=== PATIENT | male | born 1955 | race Caucasian/White ===

== ENCOUNTER 2025-03-18 16:47 | Observation (INO) ==
[~2025-03-18 16:47] MED LIST: FAMOTIDINE 20MG IV PUSH 20 MG/5 ML SYR IV SCH
[2025-03-18] MEDS ORDERED: STAT IV/IM STA (16:56)
[2025-03-18] MEDS: SODIUM CHLORIDE 0.9% 1,000 ML IV SCH ×2 (17:00→21:08)
[2025-03-18] MEDS: EPINEPHrine/NSS 4 MG/254 ML BAG IV SCH (17:02)
[2025-03-18 17:10] LABS: Hematocrit (blood only) 44.7 % (42.0-52.0); Hemoglobin 16.2 g/dl (14.0-18.0); Immature Granulocytes # (auto) 0.02 K/uL (0.01-0.20); Immature Granulocytes % (auto) 0.3 %; Mean Corpuscular Hemoglobin 31.7 pg (25.0-34.0); Mean Corpuscular Volume 87.5 fL (80.0-100.0); Platelet Count 275 K/uL (130-400); RDW Standard Deviation 43.6 fL (36.4-46.3); Red Blood Count 5.11 M/uL (4.70-6.10); White Blood Count 6.56 K/ul (4.8-10.8)
[2025-03-18] MEDS: diphenhydrAMINE 50 MG/ML VIAL IV STA ×2 (17:13→18:08)
[2025-03-18] MEDS: FAMOTIDINE 20MG IV PUSH 20 MG/5 ML SYR IV STA (17:14)
[2025-03-18] MEDS: FAMOTIDINE 20MG/5ML IV PUSH IV ONE (17:14)
[2025-03-18] MEDS: diphenhydrAMINE 50 MG/ML VIAL ONE (17:14)
[2025-03-18] MEDS: ALBUT/IPRATROP 3MG/0.5MG NEB 3 ML VIAL NEB STA (17:15)
--- NOTE | 2025-03-18 17:15 | Emergency Department Note ---
Impression & Plan Anaphylaxis, Urticaria, Sting of hornets, wasps, and bees causing poisoning and toxic reactions ED Provider Note Provider: Jarret Bryan MD CHIEF COMPLAINT: Allergic reaction, stung by hornets, dehydrated, upper chest discomfort HISTORY OF PRESENT ILLNESS: Patient is a 70-year-old gentleman history of seizures on phenobarbital [place]. Patient stays awake outside doing yard work and chopping trees since 830 this morning. Did have a brief lunch but did not hydrate that well. Evidently got stung by approximately 15-20 hornets this afternoon. 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 Do not have an epinephrine pen on him and suffered immediate allergic reaction. Denies nausea or abdominal pain. Line was activated. EMS administered 0.3 mg IM of epinephrine through an autoinjector as well as 50 mg of Benadryl and 125 mg of Solu-Medrol. Patient states symptoms of not really abated much. So reports some tightness in the upper chest around the base of her throat. Denies breathing issues but states his mouth feels somewhat dry. If shaking somewhat uncontrollably but awake and alert and talking. Again denies nausea or abdominal pain at this point. Primarily lives out of town in the [facility]. Denies known cardiac history PAST MEDICAL HISTORY: As noted above MEDICATIONS: Reviewed home medications with him SOCIAL HISTORY: PHYSICAL EXAM: GENERAL: alert and oriented on stretcher with some tremulousness diffusely Head: normocephalic and atraumatic EYES: No injection, discharge or icterus. EOMI. NECK: Trachea midline. Supple. ENT: Mucous membranes pink and moist. Pharynx without erythema or exudate. No tongue elevation or swelling appreciable. LUNGS: Airway patent. No retractions but mildly tachypneic. Breath sounds clear with good air entry bilaterally. HEART: Regular rate and rhythm. No chest wall tenderness ABDOMEN: Soft and non-tender, without guarding or rebound. SKIN: Acyanotic, warm, dry, with diffuse Sunset area/hives EXTREMITIES: Without swelling, tenderness or deformity NEUROLOGICAL: No focal deficits. No aphasia. No facial droop or slurred speech.Ambulatory. EK bpm. Normal sinus rhythm. Some baseline artifact due to shaking but no clear acute ST segment elevation with a QTc of 435. CONTINUOUS CARDIAC MONITORING: was ordered and showed a heart rate of 80s-100s bpm in normal sinus rhythm to sinus tachycardia Patient's laboratory studies and imaging reviewed. Differential includes Allergic reaction, anaphylaxis, urticaria, Thrasher-Isra syndrome, toxic epidermal necrolysis, erythema multiforme, contact dermatitis, cellulitis, ACS as well as other pathologies. IMPRESSION/MEDICAL DECISION MAKING: Patient was with extensive Sunset area/hives and stung by hornet concerns for allergic reaction. I received additional IM epinephrine and route as well as steroids and Benadryl. Denies significant GI symptoms. Denying feeling short of breath. Some tightness to the upper chest and neck region. EKG without STEMI. Question how much is from the sting versus allergic reaction versus may be induced even from the epinephrine. Will start gently on an epinephrine drip given the severity of his Sunset area and tremulousness so can be titrated. Given additional Benadryl and IV fluid here as he has been outside and likely is somewhat dehydrated. Pepcid and albuterol given as well to help with allergic symptoms. Basic blood work is sent. Does not seem infectious. Does not seem like seizure-like activity. No significant trauma is related. No significant anemia or leukocytosis. No troponin elevation or CK elevation I doubt rhabdomyolysis. Monitored here in multiple reassessments. Over the course of time here improved. Never hypotensive. Rash lightening. No longer tightness of the chest or throat. Did cough up some phlegm. Not drowsy given additional Benadryl and will turn off the epinephrine drip. Discussed with him and given the severity of the reaction would recommend observation overnight. While not excited about this, he was agreeable and the hospitalist team was contacted. Patient stated be tolerating cessation of epinephrine drip without issue on reassessment. DIAGNOSIS: Anaphylaxis, hornet stings DISPOSITION: Hospitalist will evaluate Patient was agreeable with this plan. Critical Care I have personally spent 46 minutes of critical care time in the direct management of this patient. This includes bedside care, interpretation of diagnostic studies, and testing, discussion with consultants, patient, and family members, and other required patient management activities. These 46 minutes is in excess of all separately billable procedures. Past Med/Surg History Problem List (Updated 03/18/25 @ 18:54 by Candice Prieto PA-C) BPH (benign prostatic hyperplasia) Seizure disorder Sting of hornets, wasps, and bees causing poisoning and toxic reactions (Acute) Urticaria (Acute) Anaphylaxis (Acute) Social History Smoking Status: Never smoker Preferred Language: Togolese Feels Safe at Home: Yes Allergies Allergies Allergy/AdvReac Type Severity Reaction Status Date / Time bee venom protein (honey bee) Allergy Severe Anaphylaxis Verified 03/18/25 18:05 Home Meds Home Medications Medication Instructions Recorded Confirmed GABAPENTIN (NEURONTIN) 300 mg PO QID #0 caps 02/14/12 MULTIVITAMINS/MINERALS (MVI WITH 1 tab PO DAILY #0 tabs 02/14/12 MINERALS) Diclofenac (Voltaren) 50 mg PO BID #0 tabs 02/06/13 mirabegron 50 mg tablet,extended 50 mg PO 03/18/25 release 24 hr oxybutynin chloride 10 mg mg PO 03/18/25 tablet,extended release 24 hr oxycodone 5 mg tablet mg 03/18/25 phenobarbital 30 mg tablet 30 mg PO 03/18/25 Results & Data (ED) Vital Signs Vital Signs - 24 hr 03/18/25 16:56 03/18/25 16:56 03/18/25 17:01 Temperature 36.9 C Temperature Source Oral Pulse Rate 96 H 95 H Pulse Rate [Apical] Pulse Rhythm Regular Pulse Rhythm [Apical] Respiratory Rate 12 28 H Respiratory Effort / Characteristics Respiratory Depth Respiratory Pattern Blood Pressure Blood Pressure [Right Arm] Blood Pressure Mean Blood Pressure Mean [Right Arm] Pulse Oximetry 96 98 96 Oxygen Delivery Method Room Air Room Air Room Air Oxygen Flow Rate 0 Sepsis Recent Fever Within 48 Hours No Sepsis New/Unexplained Change in Mental Status N/A Sepsis Action Taken by Nursing No Action Required 03/18/25 17:02 03/18/25 17:02 03/18/25 17:21 Temperature Temperature Source Pulse Rate 90 95 H Pulse Rate [Apical] 92 H Pulse Rhythm Pulse Rhythm [Apical] Regular Respiratory Rate 24 17 Respiratory Effort / Characteristics Non-Labored Spontaneous Respiratory Depth Normal Respiratory Pattern Regular Blood Pressure 135/82 Blood Pressure [Right Arm] 152/130 H Blood Pressure Mean 109 Blood Pressure Mean [Right Arm] 137 Pulse Oximetry 100 100 Oxygen Delivery Method Nebulizer Oxygen Flow Rate 8 Sepsis Recent Fever Within 48 Hours Sepsis New/Unexplained Change in Mental Status Sepsis Action Taken by Nursing 03/18/25 18:08 03/18/25 18:12 03/18/25 18:33 Temperature Temperature Source Pulse Rate 93 H 100 H 96 H Pulse Rate [Apical] Pulse Rhythm Pulse Rhythm [Apical] Respiratory Rate 20 23 18 Respiratory Effort / Characteristics Respiratory Depth Respiratory Pattern Blood Pressure 149/68 H 149/68 H Blood Pressure [Right Arm] Blood Pressure Mean 101 95 Blood Pressure Mean [Right Arm] Pulse Oximetry 97 97 96 Oxygen Delivery Method Oxygen Flow Rate Sepsis Recent Fever Within 48 Hours Sepsis New/Unexplained Change in Mental Status Sepsis Action Taken by Nursing 03/18/25 18:45 03/18/25 18:54 03/18/25 18:55 Temperature Temperature Source Pulse Rate 96 H 96 H Pulse Rate [Apical] Pulse Rhythm Pulse Rhythm [Apical] Respiratory Rate 18 17 Respiratory Effort / Characteristics Respiratory Depth Respiratory Pattern Blood Pressure 116/71 Blood Pressure [Right Arm] Blood Pressure Mean 91 Blood Pressure Mean [Right Arm] Pulse Oximetry Oxygen Delivery Method Oxygen Flow Rate Sepsis Recent Fever Within 48 Hours Sepsis New/Unexplained Change in Mental Status Sepsis Action Taken by Nursing 03/18/25 18:55 Temperature Temperature Source Pulse Rate Pulse Rate [Apical] Pulse Rhythm Pulse Rhythm [Apical] Respiratory Rate Respiratory Effort / Characteristics Respiratory Depth Respiratory Pattern Blood Pressure 116/71 Blood Pressure [Right Arm] Blood Pressure Mean 91 Blood Pressure Mean [Right Arm] Pulse Oximetry Oxygen Delivery Method Oxygen Flow Rate Sepsis Recent Fever Within 48 Hours Sepsis New/Unexplained Change in Mental Status Sepsis Action Taken by Nursing Laboratory Data 03/18/25 16:56 03/18/25 16:56 Lab Results 03/18/25 Range/Units 16:56 WBC 6.56 (4.8-10.8) K/ul RBC 5.11 (4.70-6.10) M/uL Hgb 16.2 (14.0-18.0) g/dl Hct 44.7 (42.0-52.0) % MCV 87.5 (80.0-100.0) fL MCH 31.7 (25.0-34.0) pg MCHC 36.2 H (32.0-36.0) g/dL RDW Std Deviation 43.6 (36.4-46.3) fL RDW Coeff of Marcy 13.6 (11.5-14.5) % Plt Count 275 (130-400) K/uL MPV 9.5 (9.4-12.4) fL Immature Gran % (Auto) 0.3 % Neut % (Auto) 63.7 % Lymph % (Auto) 23.6 % [place] % (Auto) 11.3 % Eos % (Auto) 0.5 % Baso % (Auto) 0.6 % Neut # (Auto) 4.18 (1.40-6.50) K/uL Lymph # (Auto) 1.55 (1.20-3.40) K/uL [place] # (Auto) 0.74 H (0.11-0.59) K/uL Eos # (Auto) 0.03 (0.00-0.50) K/uL Baso # (Auto) 0.04 (0.00-0.20) K/uL Immature Gran # (Auto) 0.02 (0.01-0.20) K/uL Sodium 139 (136-145) mmol/L Potassium 3.8 (3.5-5.1) mmol/L Chloride 100 (98-107) mmol/L Carbon Dioxide 25 (21-32) mmol/L Anion Gap 14 H (3-11) BUN 12 (6-23) mg/dl Creatinine 1.09 (0.6-1.4) mg/dl Est Cr Clr Drug Dosing 65.0 ml/min eGFR 73.01 BUN/Creatinine Ratio 11.0 (10-20) Glucose 153 H (70-99(Fasting)) mg/dl Calcium 9.5 (8.6-10.3) mg/dl Total Bilirubin 1.1 H (0.2-1.0) mg/dl AST 24 (13-39) U/L ALT 32 (7-52) U/L Alkaline Phosphatase 104 (34-104) U/L Total Creatine Kinase 159 (30-223) U/L Troponin I High Sens 5.4 (0-20) pg/ml Total Protein 7.0 (6.0-8.3) gm/dl Albumin 4.1 (3.4-5.0) gm/dl Globulin 2.9 (2.5-4.0) gm/dl Albumin/Globulin Ratio 1.4 (0.9-2) Administered Medications Epinephrine HCl () 4 mg in 254 mls @ 13.887 mls/hr IV .[id number] [facility]; Protocol Stop: 04/17/25 16:59 Last Infusion: 03/18/25 18:08 Dose: Infused Documented By: REBECCA Co-signed By: DENNISE Admin: 03/18/25 17:02 Dose: 0.05 mcg/kg/min, 13.9 mls/hr Documented By: CHRISTELLE Co-signed By: MICHAEL Discontinued Medications Albuterol (Albut/Ipratrop 3mg/0.5mg Neb 3 Ml Vial) 3 ml NEB NOW STA; Protocol Stop: 03/18/25 17:10 Last Admin: 03/18/25 17:15 Dose: 3 ml Documented By: CHRISTELLE Diphenhydramine HCl (Diphenhydramine 50 Mg/Ml Vial) Confirm Administered Dose 50 mg .ROUTE .STK-MED ONE Stop: 03/18/25 17:08 Last Admin: 03/18/25 17:14 Dose: Not Given Documented By: CHRISTELLE Diphenhydramine HCl (Diphenhydramine 50 Mg/Ml Vial) 25 mg IV NOW STA Stop: 03/18/25 17:10 Last Admin: 03/18/25 17:13 Dose: 25 mg Documented By: CHRISTELLE Diphenhydramine HCl (Diphenhydramine 50 Mg/Ml Vial) 25 mg IV NOW STA Stop: 03/18/25 17:49 Last Admin: 03/18/25 18:08 Dose: 25 mg Documented By: REBECCA Famotidine (Famotidine 20mg/5ml Iv Push) Confirm Administered Dose 20 mg IV .STK-MED ONE Stop: 03/18/25 17:08 Last Admin: 03/18/25 17:14 Dose: Not Given Documented By: CHRISTELLE Sodium Chloride (Nss) 1,000 mls @ 999 mls/hr IV .Q1H1M FREDERIC Stop: 03/18/25 18:00 Last Infusion: 03/18/25 17:49 Dose: Infused Documented By: Admin: 03/18/25 17:00 Dose: 999 mls/hr Documented By: CHRISTELLE Famotidine (Pepcid 20mg Iv Push) 20 mg in 5 mls @ 2.5 mls/min IV NOW STA Stop: 03/18/25 17:10 Last Admin: 03/18/25 17:14 Dose: 2.5 mls/min Documented By: CHRISTELLE Discharge Plan Visit Data Chief Complaint: Allergic Reaction Stated Complaint: ALLERGIC REACTION, CHEST TIGHTNESS ED Provider: Jarret Bryan Discharge Problem: Anaphylaxis, Urticaria, Sting of hornets, wasps, and bees causing poisoning and toxic reactions Patient Disposition: Being Evaluated by Hospitalist Condition: Good Forms Stand Alone Forms: My [facility] Prescriptions Prescriptions: No Action GABAPENTIN (NEURONTIN) 300 MG capsule 300 mg PO QID Qty: 0 MULTIVITAMINS/MINERALS (MVI WITH MINERALS) tablet 1 tab PO DAILY Qty: 0 Diclofenac (Voltaren) [address] TB 50 mg PO BID Qty: 0 oxybutynin chloride 10 mg tablet extended release 24hr PO phenobarbital 30 mg tablet 30 mg PO oxycodone 5 mg tablet mirabegron 50 mg tablet extended release 24 hr 50 mg PO Referrals Referrals: PCP,NO [Physician] - Discharge Problem: Sting of hornets, wasps, and bees causing poisoning and toxic reactions Qualifiers: Encounter type: initial encounter Injury intent: accidental or unintentional Q ualified Code(s): T63.451A - Toxic effect of venom of hornets, accidental (unintentional), initial encounter
[2025-03-18 17:29] LABS: Alanine Aminotransferase 32.0 U/L (7-52); Albumin Globulin Ratio 1.4 (0.9-2); Alkaline Phosphatase 104.0 U/L (34-104); Anion Gap 14.0 (3-11); Bilirubin,Total 1.1 mg/dl (0.2-1.0); Blood Urea Nitrogen 12.0 mg/dl (6-23); Calcium 9.5 mg/dl (8.6-10.3); Carbon Dioxide 25.0 mmol/L (21-32); Chloride 100.0 mmol/L (98-107); Creatine Kinase 159.0 U/L (30-223); Creatinine Clr Calc Pharmacy 65.0 ml/min; Globulin 2.9 gm/dl (2.5-4.0); Glucose 153.0 mg/dl (70-99(Fasting)); Potassium 3.8 mmol/L (3.5-5.1); Sodium 139.0 mmol/L (136-145); Total Protein 7.0 gm/dl (6.0-8.3)
--- NOTE | 2025-03-18 18:19 | History & Physical Report ---
Date of Service March 18, 2025 Assessment & Plan (1) Anaphylaxis: (2) Seizure disorder: (3) BPH (benign prostatic hyperplasia): Quinn Moreiar is a 70M with a PMHx of seizures and BPH Who presents to the hospital after suffering multiple hornet stings. briefly required an epinephrine drip, however this has been been turned off and he remained stable throughout admission. Admitted for observation after anaphylaxis #Anaphylaxis Reaction to hornet stingsrecommend additional epinephrine prescription at discharge Keep EpiPen at bedside Received 120 filled 5 mg IV Solu-Medrol and route with EMSrecent studies showing steroids do not prevent biphasic anaphylaxis, no bronchospasm and hives improving. Additional steroids deferred on admission Benadryl 25 mg IV every 6 hours scheduled Pepcid 20 mg twice daily IV scheduled Duoneb prn for wheezing prn benadryl for itching #Seizure disorder Continue phenobarbital #BPH Continue oxybutynin Myrbetriq held - not on formulary, expect short stay dispo: TO PCU DVT prophylaxis: Low risk, encourage ambulation History of Present Illness Chief Complaint: anaphylaxis Primary Care Provider: Mike Banda DO Moreira is a 70M with a PMHx of seizures and BPH Who presents to the hospital after suffering multiple hornet stings. Patient resides outside of [place], he was up visiting his camp. They were cutting down a tree that was over a ground hornets nest that he was unaware of and when the tree fell the hornets nest report went crazy and he was stung at least 15 times mainly in the arm and chest and neck area. He states he made it about 2 minutes until his legs were shaking and he was very dizzy at that time his called 911. He never felt short of breath during this event however he did feel like his throat was closing. At the time of my assessment he is feeling much better stating his hives are much improved. He is ambulated to the bathroom without issue. He states he has an EpiPen but did not have it with him. History of seizure disorder reports last seizure was 47 years ago Takes 2 pills for his prostate knows 1 is oxybutynin but is unsure what the other 1 is called He would like to be a full code ED course: Epinephrine, steroids and Benadrylprehospital Benadryl 25 mg IV x 1 DuoNebs x 1 Pepcid 20 mg IV x 1 NSS 1 L x 1 Allergies Allergy/AdvReac Type Severity Reaction Status Date / Time bee venom protein (honey bee) Allergy Severe Anaphylaxis Verified 03/18/25 18:05 Home Medications Medication Instructions Recorded Confirmed Type GABAPENTIN (NEURONTIN) 300 mg PO QID #0 caps 02/14/12 History MULTIVITAMINS/MINERALS (MVI WITH 1 tab PO DAILY #0 tabs 02/14/12 History MINERALS) Diclofenac (Voltaren) 50 mg PO BID #0 tabs 02/06/13 History mirabegron 50 mg tablet,extended 50 mg PO 03/18/25 History release 24 hr oxybutynin chloride 10 mg mg PO 03/18/25 History tablet,extended release 24 hr oxycodone 5 mg tablet mg 03/18/25 History phenobarbital 30 mg tablet 30 mg PO 03/18/25 History Past Med/Surg History Problem List (Updated 03/19/25 @ 03:28 by Lisandro Cooper MD) Sting of hornets, wasps, and bees causing poisoning and toxic reactions (Acute) Urticaria (Acute) Medical History (Updated 03/19/25 @ 03:28 by Lisandro Cooper MD) Anaphylaxis BPH (benign prostatic hyperplasia) Seizure disorder Social History Smoking Status: Never smoker Hx Alcohol Use: Yes Alcohol type: beer Hx Substance Use: No Preferred Language: French Communication Ability: Effective Oven Baker Required: No Beliefs That Will Affect Care: None Current Living Situation: Spouse Other Information That Helps Us Care for You: No Feels Safe at Home: Yes Safety Concerns: Feels Safe At This Time Assistive Devices: None Review of Systems Review of Systems: All systems reviewed & are unremarkable except as noted in Subjective Physical Exam Physical Exam: General: NAD, VS as above Resp: normal respiratory effort, lungs clear to auscultation, no stridor CV: RRR, no murmur, Abd: normal bowel sounds, non tender, no hepatosplenomegaly Extremities: Moves all extremities, no edema Neuro: A&O x3, Skin: hives present over anterior chest, back, improved on the abdomen and arms. No hives present on the legs. Results & Data Results & Data Vital Signs (Past 12 Hours) Vital Signs Temp Pulse Pulse Resp BP BP Pulse Ox 03/18/25 18:08 93 H 20 149/68 H 97 03/18/25 17:21 92 H 17 152/130 H 100 03/18/25 17:02 95 H 24 135/82 100 03/18/25 17:02 90 03/18/25 17:01 95 H 28 H 96 03/18/25 16:56 98 03/18/25 16:56 98.4 F 96 H 12 96 O2 Del Method O2 Flow Rate 03/18/25 18:08 03/18/25 17:21 Nebulizer 8 03/18/25 17:02 03/18/25 17:02 03/18/25 17:01 Room Air 03/18/25 16:56 Room Air 0 03/18/25 16:56 Room Air Laboratory Results CBC and chemistry reviewed Diagnostic Findings Checks every chest x-ray reviewedno formal radiology read at the time of admission however no acute findings per my read. Supervising Physician Co-Signing Physician Notes Attending Attestation & Admit Note: Pt seen/examined, chart reviewed, admit care plan d/w ZARA Prieto. I agree with the hernandez components of her admission documentation. 70yo male with h/o BPH, seizure disorder, and known bee sting allergy who presents with anaphylaxis following multiple bee stings while visiting his camp near [facility]. He thinks he was stung by 10+ hornets. He did not have his epi-pen with him. He developed shakiness, throat swelling, extensive hives, etc and EMS was summoned to his camp. En route to [facility] he received epi-pen, solumedrol, and IV benadryl. Upon arrival he reported no improvement in his symptoms. Fortunately O2 sats were wnl and he had no evidence of shock. Due to refractory symptoms/signs, however, he was initiated on epinephrine infusion. His extensive urticaria, pruritis, and throat symptoms improved on epi drip, with the latter fully resolved by the time of my assessment. The epi drip was discontinued by the time I did my ER assessment. Patient denies h/o asthma. During my assessment he denies any wheezing, chest tightness, stridor, ongoing throat symptoms, or dyspnea. PMH/PSH/allergies/meds/sochx - reviewed VSS, afebrile, o2 sats wnl gen - NAD, lying comfortably in bed, no respiratory distress/stridor HENT - throat is clear, no pharyngeal edema, MMM, tongue is wnl neck - no JVD, no anterior neck swelling heart - RRR, s1 s2 lungs - CTA b/l, no wheezing, no stridor abd - soft NT ND BS+ ext - no edema, pulses b/l feet 2+ skin - extensive hives on torso, neck, arms; minimal involvement of face or back; no involvement of legs labs reviewed cxr reviewed EKG reviewed - NSR, no ST changes A/P: Anaphylaxis to bee sting with known prior history of such. NO ANAPHYLACTIC SHOCK. s/p epi-pen in the field, s/p steroids in the field, and brief use of epi drip in the ER - now off. Very good response to the above with stable vitals, no laryngeal edema at this time, stable o2 sats, and improving hives. Agree with scheduled pepcid, scheduled benadryl, albuterol prn, epi-pen at bedside, close vital sign monitoring and serial exams. Agree with deferring steroids due to lack of bronchospasm. Observe overnight for biphasic reaction. Lisandro Cooper MD PG Care Time/CCT Total # of Minutes Spent Total Time Spent with Patient: Total time spent is greater than 50% in coordination of care (as documented) at patient's floor/unit and/or counseling patient: Coding Level of Care Code 31727 INT INP/OBS CARE 3/75MIN Diagnoses Anaphylaxis T78.2XXA Seizure disorder G40.909 BPH (benign prostatic hyperplasia) N40.0
--- NOTE | 2025-03-18 19:20 | XRay Report ---
EXAM: XR chest 1V portable CLINICAL HISTORY: cp. TECHNIQUE: An X-ray image of the chest is obtained in AP projection. COMPARISON: No prior studies are available for comparison. FINDINGS: Pulmonary Parenchyma: Lungs are clear bilaterally. No evidence of consolidation, collapse, or focal opacities. No pulmonary nodules are identified. No evidence of pleural effusion or pleural thickening. Heart and Mediastinum: Heart size and shape are normal. No mediastinal widening or masses. No hilar or mediastinal lymphadenopathy. Bony Thorax: Bony thorax appears intact without fractures or deformities. Soft Tissues: Soft tissues overlying the chest wall are unremarkable. IMPRESSION: Normal chest X-ray. No acute cardiopulmonary abnormalities are identified. Electronically signed by Charan Hooks 03-18-2025 7:20 PM
[2025-03-18] MEDS ORDERED: POLYETHYLENE (MIRALAX) 17 GM PACK PO PRN (20:26)
[2025-03-18] MEDS ORDERED: ALBUT/IPRATROP 3MG/0.5MG NEB 3 ML VIAL NEB PRN (20:26)
[2025-03-18] MEDS ORDERED: EPINEPHrine INJ 1 MG/ML AMP IM PRN (20:26)
[2025-03-18] MEDS ORDERED: ONDANSETRON INJ 2 MG/ML 2 ML VIAL IV PRN (20:26)
[2025-03-18] MEDS ORDERED: diphenhydrAMINE 50 MG/ML VIAL IV PRN (20:26)
[2025-03-18] MEDS ORDERED: MELATONIN 3 MG TAB PO PRN (20:26)
[2025-03-18] MEDS: diphenhydrAMINE 50 MG/ML VIAL IV SCH (23:43)
[2025-03-19] MEDS: FAMOTIDINE 20MG IV PUSH 20 MG/5 ML SYR IV SCH (05:37)
[2025-03-19 08:28] VITALS: BP 130/79; PULSE 75; RESP 18; TEMP 97.3; O2SAT 99
[2025-03-19] MEDS: OXYBUTYNIN CHLORIDE XL 5 MG TABCR PO SCH (08:46)
--- NOTE | 2025-03-19 09:51 | Discharge Summary ---
Discharge Summary Date of Service March 19, 2025 Principal Dx & Hospital Course #1 = Principal Diagnosis (1) Anaphylaxis: (2) Seizure disorder: (3) BPH (benign prostatic hyperplasia): Quinn Moreira is a 70M with a PMHx of seizures and BPH Who presents to the hospital after suffering multiple hornet stings. briefly required an epinephrine drip, however this has been been turned off and he remained stable throughout admission. Admitted for observation after anaphylaxis #Anaphylaxis Reaction to hornet stingsrecommend additional epinephrine prescription at discharge Keep EpiPen at bedside Received 120 filled 5 mg IV Solu-Medrol and route with EMSrecent studies showing steroids do not prevent biphasic anaphylaxis, no bronchospasm and hives improving. Additional steroids deferred on admission Benadryl 25 mg IV every 6 hours scheduled Pepcid 20 mg twice daily IV scheduled Duoneb prn for wheezing prn benadryl for itching #Seizure disorder Continue phenobarbital #BPH Continue oxybutynin Myrbetriq held - not on formulary, expect short stay dispo: TO PCU DVT prophylaxis: Low risk, encourage ambulation Admission HPI Per Admitting Provider Harish is a 70M with a PMHx of seizures and BPH Who presents to the hospital after suffering multiple hornet stings. Patient resides outside of [place], he was [place]. They were cutting down a tree that was over a ground hornets nest that he was unaware of and when the tree fell the hornets nest report went crazy and he was stung at least 15 times mainly in the arm and chest and neck area. He states he made it about 2 minutes until his legs were shaking and he was very dizzy at that time his called 911. He never felt short of breath during this event however he did feel like his throat was closing. At the time of my assessment he is feeling much better stating his hives are much improved. He is ambulated to the bathroom without issue. He states he has an EpiPen but did not have it with him. History of seizure disorder reports last seizure was 47 years ago Takes 2 pills for his prostate knows 1 is oxybutynin but is unsure what the other 1 is called He would like to be a full code ED course: Epinephrine, steroids and Benadrylprehospital Benadryl 25 mg IV x 1 DuoNebs x 1 Pepcid 20 mg IV x 1 NSS 1 L x 1 Discharge Plan Discharge Items Patient Disposition: Home - Self-Care Reason For Visit: ANAPHYLAXIS Discharge Diagnosis: Anaphylaxis due to bee sting Condition on Discharge: Good Activity: As commented below Activity Comment: gradually increase as tolerated over the next 2-3 days Driving/Machine Use: Resume 1 day after discharge Non-emergency contact: Primary Care Provider Call non-emergency contact if: you have any medication questions and your symptoms worsen Follow-up/Referrals: Ismael Styles MD [Other] (see Dr Styles this week) Diet: Regular Addtl Attending Provider Instructions: Mr Iqbal, Iván were hospitalized after being st[place] multiple bees [place]. This caused you to have anaphylaxis (see handout) which is the most severe form of allergic reaction. Anaphylaxis, if not treated immediately, can lead to . Anaphylaxis can cause swelling in your windpipe and voicebox leading to difficulty breathing, and anaphylaxis can also lead to shock which is when your blood pressure drops to dangerously low levels. Fortunately the ambulance got to your camp quickly and gave you epinephrine (along with steroids and benadryl). The epinephrine shot is the MOST IMPORTANT treatment in the setting of having anaphylaxis. The epinephrine is life-saving. Following admission you did very well. Your hives are largely resolved. Your breathing and oxygen levels have been normal. You are eating/drinking without difficulty. Labs and vital signs have been normal. Recommendations - 1. I have prescribed an epinephrine autoinjector for you (see handout). It comes in a pack of 2. Keep this with you at all times including when you leave your home. Again this is a life-saving medicine if you were to get stung by a bee in the future. 2. If you have a bee sting in the future and develop a reaction immediately g criss yourself a shot of the epinephrine. If you have to use your epinephrine seek medical attention right away - dial 911. It is better to give yourself a shot than to not give it. Don't wait for things to get worse. Technically you can give yourself a second shot of epinephrine 5 to 15 minutes after the first injection IF your anaphylaxis symptoms (difficulty breathing, throat closing, severe dizziness, hives, etc) do not improve with the first shot. 3. For the next 2-3 days please take rcnh-egw-[id number] Pepcid (famotidine) 20mg twice daily. 4. Today, 03/19/25, please take 25mg of benadryl this afternoon, then take another 25 of benadryl at bedtime tonight. If you wake up tomorrow morning with no itching, no hives on your skin, and you feel well you don't have to take the benadryl any longer. If you have any of these symptoms tomorrow morning I would continue the benadryl for another day. 5. Please talk to your family doctor about getting a referral to an foil wrapper near your hometown. 6. Lastly, your blood glucose level was elevated at about 150 when you arrived here. I suspect the epinephrine given for the anaphylaxis raised the glucose (s ugar) level. If you haven't been screened for diabetes in some time please have your family doctor check that in the future. Follow-up - see your family doctor this week. Return to any hospital emergency room IF - -you have to use your epinephrine autoinjector -you have worsening swelling of your face/tongue/throat -you have worsening shortness of breath or wheezing or chest pain/chest ti ghtness -you have worsening/recurrent hives -any other concerns It was our pleasure to care for you! -Lisandro Cooper - hospitalist Pending Studies at Discharge: Yes Studies:: Tryptase level, hepatitis C test Stand-Alone Forms: [facility] [employer], Smoking Cessation Medications and DC Order Prescriptions: New epinephrine 0.3 mg/0.3 mL auto-injector 0.3 mg IM ONCE PRN (Reason: anaphylaxis) Qty: 2 0RF famotidine [Pepcid AC Maximum Strength] 20 mg tablet 20 mg PO BID PRN (Reason: allergic reaction) Qty: 20 0RF Rx Instructions: purchase eymu-gov-yrlijka diphenhydramine HCl [Benadryl] 25 mg capsule 25 mg PO Q6H PRN (Reason: hives/allergic reaction) Qty: 20 0RF Rx Instructions: purchase kwlg-vuu-fwlygeo Continued MULTIVITAMINS/MINERALS (MVI WITH MINERALS) tablet 1 tab PO DAILY Qty: 0 Changed oxybutynin chloride 10 mg tablet extended release 24hr 10 mg PO DAILY Qty: 0 0RF phenobarbital 30 mg tablet 30 mg PO TID Qty: 0 0RF Rx Instructions: per pharmacy records you are prescribed 300 tablets to use over 100 days. This suggests you should be taking this medicine three times each day. Please discuss your dosing with your family doctor. mirabegron 50 mg tablet extended release 24 hr 50 mg PO DAILY Qty: 0 0RF Held Diclofenac (Voltaren) [address] TB 50 mg PO BID Qty: 0 Hold Instructions: if you have been taking this medicine please hold it until you see your family doctor Discontinued GABAPENTIN (NEURONTIN) 300 MG capsule 300 mg PO QID Qty: 0 oxycodone 5 mg tablet Discharge Orders: Discharge Order (Routine); Ordered 03/19/25 Ordered By: Lisandro Hall/Other Patient Handouts: Using an Epinephrine Autoinjector, ED Insect Sting Allergy Generalized, ED Anaphylaxis Admission Data Admit Date/Time: 03/18/25 18:54 Attending Provider: Lisandro Cooper Admit Provider: Lisandro Cooper Primary Care Provider: Mike Banda Other Providers: Lisandro Cooper Hospital Stay Data Consultations 03/18/25 18:12 ED Decision to Admit Stat Pending Results Patient Have Any Pending Studies at Discharge: Yes Discharge Instructions Given to Patient (Per Discharging Provider) Mr Iqbal, You were hospitalized after being st[place] bees [place]. This caused you to have anaphylaxis (see handout) which is the most severe form of allergic reaction. Anaphylaxis, if not treated immediately, can lead to . Anaphylaxis can cause swelling in your windpipe and voicebox leading to difficulty breathing, and anaphylaxis can also lead to shock which is when your blood pressure drops to dangerously low levels. Fortunately the ambulance got to your camp quickly and gave you epinephrine (along with steroids and benadryl). The epinephrine shot is the MOST IMPORTANT treatment in the setting of having anaphylaxis. The epinephrine is life-saving. Following admission you did very well. Your hives are largely resolved. Your breathing and oxygen levels have been normal. You are eating/drinking without difficulty. Labs and vital signs have been normal. Recommendations - 1. I have prescribed an epinephrine autoinjector for you (see handout). It comes in a pack of 2. Keep this with you at all times including when you leave your home. Again this is a life-saving medicine if you were to get stung by a bee in the future. 2. If you have a bee sting in the future and develop a reaction immediately give yourself a shot of the epinephrine. If you have to use your epinephrine seek medical attention right away - dial 911. It is better to give yourself a shot than to not give it. Don't wait for things to get worse. Technically you can give yourself a second shot of epinephrine 5 to 15 minutes after the first injection IF your anaphylaxis symptoms (difficulty breathing, throat closing, severe dizziness, hives, etc) do not improve with the first shot. 3. For the next 2-3 days please take [id number]-vgr-nsohsdn Pepcid (famotidine) 20mg twice daily. 4. Today, 03/19/25, please take 25mg of benadryl this afternoon, then take anot her 25 of benadryl at bedtime tonight. If you wake up tomorrow morning with no itching, no hives on your skin, and you feel well you don't have to take the benadryl any longer. If you have any of these symptoms tomorrow morning I would continue the benadryl for another day. 5. Please talk to your family doctor about getting a referral to an foil wrapper near your hometown. 6. Lastly, your blood glucose level was elevated at about 150 when you arrived here. I suspect the epinephrine given for the anaphylaxis raised the glucose (sugar) level. If you haven't been screened for diabetes in some time please have your family doctor check that in the future. Follow-up - see your family doctor this week. Return to any hospital emergency room IF - -you have to use your epinephrine autoinjector -you have worsening swelling of your face/tongue/throat -you have worsening shortness of breath or wheezing or chest pain/chest tightness -you have worsening/recurrent hives -any other concerns It was our pleasure to care for you! -Lisandro Cooper - hospitalist Coding Diagnoses Anaphylaxis T78.2XXA Seizure disorder G40.909 BPH (benign prostatic hyperplasia) N40.0
--- NOTE | 2025-03-19 12:22 | Electrocardiogram Report ---
Test Reason : Blood Pressure : */* mmHG Vent. Rate : 93 BPM Atrial Rate : 93 BPM P-R Int : 152 ms QRS Dur : 74 ms QT Int : 350 ms P-R-T Axes : 36 69 65 degrees QTcB Int : 435 ms Poor data quality, interpretation may be adversely affected Normal sinus rhythm Probably normal No previous ECGs available Confirmed by Maxwell Wyman ([id number]) on 03/19/2025 12:21:28 PM Referred By: REFERRED SELF Confirmed By: Maxwell Wyman
== END 2025-03-19 10:22 | disposition home or self-care (01) ==
LOC: EDINP 16:47 → ED 16:47 → 2S 20:26